=== PATIENT | female | born 1940 | race Caucasian/White ===

== ENCOUNTER 2021-06-11 14:41 | Day surgery (SDCO) | payer MEDICARE, OTHER ==
[~2021-06-11] VITALS: Ht 149.9 cm; Wt 45.4 kg
[2021-06-11 15:36] LABS: BASOPHIL 0.6 % (0-2); EOSINOPHIL 4.6 % (0-7); HCT 25.2 % (37.0-47.0); LYMPHOCYTE 10.9 % (15-48); MCH 33.8 pg (25.0-31.0); MCHC 31.7 g/dL (32.0-36.0); MCV 106.3 fL (78.0-100.0); MONOCYTE 7.6 % (0-12); MPV 10.3 fL (6.0-9.5); NEUTROPHIL 75.9 % (41-80); NRBC 0; PLT 233 K/uL (150-400); RBC 2.37 M/uL (4.20-5.40); RDW 13.2 % (11.5-14.0); WBC 11.5 K/uL (4.0-10.5)
[2021-06-11 15:45] LABS: ALBUMIN 3.2 g/dL (3.4-5.0); BILIRUBIN - TOTAL 0.3 mg/dL (0.2-1.0); BUN/CREAT RATIO (CALC) 12.7 RATIO; CREATININE 3.23 mg/dL (0.51-0.95); GLOBULIN (CALCULATION) 3.1 g/dL; POTASSIUM 5.2 mmol/L (3.5-5.1); TOTAL PROTEIN 6.3 g/dL (6.4-8.2)
[2021-06-11 16:29] LABS: BILIRUBIN NEGATIVE (NEGATIVE); BLOOD 1+ Ery/uL (NEGATIVE); CLARITY CLEAR (CLEAR); COLOR YELLOW (YELLOW); GLUCOSE (U) NORMAL (NORMAL); LEUKOCYTES 3+ Leu/uL (NEGATIVE); NITRITE NEGATIVE (NEGATIVE); PROTEIN 1+ mg/dL (NEGATIVE); UROBILINOGEN 0.2 mg/dL (0.2-1.0)
[2021-06-11 16:43] LABS: BACTERIA 4+; SQUAMOUS EPITHELIAL CELLS RARE; URINARY WBC TNTC
--- NOTE | 2021-06-11 20:10 | NUR ---
2000 PT DOES NOT KNOW HOME MEDICATIONS. WILL CALL [facility] IN AM TO RECONCILE MEDICATIONS.
[2021-06-12 04:17] LABS: BASOPHIL 0.6 % (0-2); EOSINOPHIL 4.6 % (0-7); HCT 24.1 % (37.0-47.0); HGB 7.4 g/dl (12.5-16.0); LYMPHOCYTE 12.5 % (15-48); MCH 32.6 pg (25.0-31.0); MCHC 30.7 g/dL (32.0-36.0); MCV 106.2 fL (78.0-100.0); MONOCYTE 9.1 % (0-12); MPV 10.8 fL (6.0-9.5); NEUTROPHIL 72.8 % (41-80); NRBC 0; PLT 181 K/uL (150-400); RBC 2.27 M/uL (4.20-5.40); RDW 13.2 % (11.5-14.0); WBC 9.8 K/uL (4.0-10.5)
[2021-06-12 04:40] LABS: BILIRUBIN - TOTAL 0.2 mg/dL (0.2-1.0); BUN/CREAT RATIO (CALC) 12.6 RATIO; CREATININE 2.85 mg/dL (0.51-0.95); GLOBULIN (CALCULATION) 2.9 g/dL; POTASSIUM 4.6 mmol/L (3.5-5.1); TOTAL PROTEIN 5.9 g/dL (6.4-8.2)
[2021-06-12] MEDS ORDERED: AMIODARONE HCL200 M1 PO (09:35)
[2021-06-12] MEDS ORDERED: ATORVASTATIN CA40 MG PO (09:36)
[2021-06-12] MEDS ORDERED: SODIUM BICARBO650 MG PO (09:37)
[2021-06-12] MEDS ORDERED: CLOPIDOGREL75 MG PO (09:38)
[2021-06-12] MEDS ORDERED: LOPRESSOR25 MG PO (09:39)
[2021-06-12] MEDS ORDERED: MYRBETRIQ50 MG PO (09:41)
[2021-06-12] MEDS ORDERED: SYNTHROID75 MC1 PO (09:45)
[2021-06-12 16:49] LABS: FOLIC ACID (SERUM) 7.2 ng/mL (8.6-58.9)
--- NOTE | 2021-06-13 02:11 | NUR ---
0030 PT VERY ANGRY ABOUT IV PUMP BEEPING AND HAVING TO URINATE FREQUENTLY WITH IV FLUIDS. INSTRUCTED PT I WOULD DC IV IN LAC AND RESTART IN ANOTHER PLACE. PT STATED SHE DID NOT WANT IV RESTARTED AND DEMANDED IVF BE OFF SO SHE WOULD NOT HAVE T URINATE MUCH.
--- NOTE | 2021-06-13 04:11 | NUR ---
0130 K MADELYN NIX NOTIFIED OF PT REFUSING IVF AND REQUESTING EXTRA STRENGTH TYLENOL.
--- NOTE | 2021-06-13 05:01 | NUR ---
0400 PT STATES HAVING PAIN. INFORMED PT IT WAS TOO EARLY FOR TYLENOL. INFORMED PT I WOULD ASK HER PROVIDER FOR ANOTHER MED FOR PAIN. . PT STATES SHE ONLU TAKES TYLENOL AT HOME PER ADVICE OF HER RENAL MD IN [place] AND SHE SHOULD BE ABLE TO TAKE IT WHENEVER SHE WANTS AT THE HOSPITAL ALSO. INSTRUCTED PT THAT I COULD ONLY GIVE HER MEDICATION HER PROVIDER ORDERED. PT TOLD ME TO GET OUT OF HER ROOM AND CLOSE THE DOOR.
[2021-06-13 06:19] LABS: BASOPHIL 0.6 % (0-2); EOSINOPHIL 3.7 % (0-7); HCT 29.7 % (37.0-47.0); LYMPHOCYTE 9.7 % (15-48); MCH 32.9 pg (25.0-31.0); MCHC 32.7 g/dL (32.0-36.0); MCV 100.7 fL (78.0-100.0); MONOCYTE 9.2 % (0-12); MPV 9.9 fL (6.0-9.5); NEUTROPHIL 76.4 % (41-80); NRBC 0; PLT 212 K/uL (150-400); RBC 2.95 M/uL (4.20-5.40); RDW 15.5 % (11.5-14.0); WBC 10.9 K/uL (4.0-10.5)
[2021-06-13 06:20] LABS: HGB 9.7 g/dl (12.5-16.0)
[2021-06-13 06:38] LABS: BUN/CREAT RATIO (CALC) 14.5 RATIO; CREATININE 2.48 mg/dL (0.51-0.95); POTASSIUM 4.3 mmol/L (3.5-5.1)
[2021-06-13] MEDS ORDERED: VITAMIN B-121000 MC1 PO (11:41)
[2021-06-13] MEDS ORDERED: LOPRESSOR50 MG PO (11:41)
[2021-06-13] MEDS ORDERED: FOLIC ACID1 MG PO (11:41)
[2021-06-13] MEDS ORDERED: CEFDINIR300 MG PO (11:45)
[2021-06-13] MEDS ORDERED: BUMEX1 MG PO (12:10)
--- NOTE | 2021-06-13 14:03 | NUR ---
06/13/21 Ms. Taylor lives alone. She has a bufferer for 2 hours 2 days per week. She has a rollator, 3in1, and s. seat. A referral was made to [facility] via [facility] per patient / family choice. - Report given to MS QUINN Linares.
== END 2021-06-13 15:14 | disposition home health service (06) ==
LOC: FER 14:41 → FMS 17:52
PROVIDERS: Emergency Medicine; Internal Medicine; Internal Medicine Cardiovascular Disease; Nurse Practitioner; ADMIT Allergy & Immunology Allergy
DX: J18.9 Pneumonia, unspecified organism (principal); N17.9 Acute kidney failure, unspecified; N18.9 Chronic kidney disease, unspecified; N39.0 Urinary tract infection, site not specified; D63.1 Anemia in chronic kidney disease; R07.9 Chest pain, unspecified; I25.10 Atherosclerotic heart disease of native coronary artery without angina pectoris; E78.5 Hyperlipidemia, unspecified; I25.2 Old myocardial infarction; R42 Dizziness and giddiness; R53.1 Weakness; R27.0 Ataxia, unspecified; F32.9 Major depressive disorder, single episode, unspecified; E03.9 Hypothyroidism, unspecified; C43.9 Malignant melanoma of skin, unspecified; K21.9 Gastro-esophageal reflux disease without esophagitis; K44.9 Diaphragmatic hernia without obstruction or gangrene; M81.0 Age-related osteoporosis without current pathological fracture; K59.00 Constipation, unspecified; M48.54XA Collapsed vertebra, not elsewhere classified, thoracic region, initial encounter for fracture; Z20.822 Contact with and (suspected) exposure to COVID-19; Z98.61 Coronary angioplasty status; Z90.710 Acquired absence of both cervix and uterus
CPT/HCPCS: 36415; 36430; 70450; 71101; 72072; 72100; 73630; 80048; 80053; 81001; 82607; 82728; 82746; 83540; 84484; 85025; 86850; 86900; 86901; 86922; 87076; 87088; 87186; 93005; G0378; J0696; J2916; J7030; P9016; U0002

== ENCOUNTER 2021-12-13 09:47 | Emergency (ER) | payer MEDICARE, OTHER ==
[~2021-12-13 09:47] MED LIST: AMIODARONE HCL200 M1 PO; ATORVASTATIN CA40 MG PO; BUMEX1 MG PO; CEFDINIR300 MG PO; CLOPIDOGREL75 MG PO; FOLIC ACID1 MG PO; LOPRESSOR25 MG PO; LOPRESSOR50 MG PO; MYRBETRIQ50 MG PO; SODIUM BICARBO650 MG PO; SYNTHROID75 MC1 PO; VITAMIN B-121000 MC1 PO
[2021-12-13 11:21] LABS: ALBUMIN 3.2 g/dL (3.4-5.0); BILIRUBIN - TOTAL 0.4 mg/dL (0.2-1.0); BUN/CREAT RATIO (CALC) 15.1 RATIO; CREATININE 2.85 mg/dL (0.51-0.95); MAGNESIUM 1.8 mg/dL (1.8-2.4); POTASSIUM 3.9 mmol/L (3.5-5.1); TOTAL PROTEIN 6.2 g/dL (6.4-8.2)
[2021-12-13 11:40] LABS: LACTIC ACID 0.8 mmol/L (0.4-1.9)
[2021-12-13 11:50] LABS: BASOPHIL 0.3 % (0-2); EOSINOPHIL 2.6 % (0-7); HCT 30.3 % (37.0-47.0); HGB 9.8 g/dl (12.5-16.0); LYMPHOCYTE 18.9 % (15-48); MCHC 32.3 g/dL (32.0-36.0); MONOCYTE 14.1 % (0-12); MPV 10.5 fL (6.0-9.5); NEUTROPHIL 61.3 % (41-80); NRBC 0; PLT 164 K/uL (150-400); RBC 3.06 M/uL (4.20-5.40); RDW 16.9 % (11.5-14.0); WBC 7.2 K/uL (4.0-10.5)
[2021-12-13 15:04] LABS: BILIRUBIN NEGATIVE (NEGATIVE); BLOOD NEGATIVE Ery/uL (NEGATIVE); CLARITY CLEAR (CLEAR); COLOR YELLOW (YELLOW); GLUCOSE (U) NORMAL (NORMAL); LEUKOCYTES NEGATIVE Leu/uL (NEGATIVE); NITRITE NEGATIVE (NEGATIVE); PROTEIN TRACE (LOW) mg/dL (NEGATIVE); UROBILINOGEN 0.2 mg/dL (0.2-1.0)
[2021-12-13 15:56] LABS: BACTERIA TRACE
== END 2021-12-13 17:22 | disposition home or self-care (01) ==
LOC: FER 09:47
PROVIDERS: Emergency Medicine
DX: U07.1 COVID-19 (principal); Z88.0 Allergy status to penicillin
CPT/HCPCS: 36415; 71045; 80053; 81001; 83605; 83690; 83735; 84145; 85025; 93005; J7030; U0002